=== PATIENT | male | born 1965 | race Caucasian/White ===

== ENCOUNTER 2017-04-23 15:26 | Emergency (ER) | payer SELFPAY ==
[2017-04-23 15:52] LABS: BASOPHILS % 0.5 (0.0-1.5); MEAN CORPUSCULAR HEMOGLOBIN 31.3 pg (28.0-34.0); MEAN CORPUSCULAR VOLUME 93.7 fl (80.0-100.0); MONOCYTES % 6.8 % (0.0-11.0); NEUTROPHILS # 6.2 # k/uL (1.4-7.7)
[2017-04-23] MEDS: 0.9 % SODIUM CHLORIDE 1,000 ML IV ONE (15:59)
[2017-04-23 16:06] LABS: eGFR (African) > 60; eGFR (Non-African) > 60
[2017-04-23 17:41] VITALS: BP 108/71
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
== END 2017-04-23 17:30 | disposition home or self-care (01) ==
LOC: ED 15:26
DX: R55 Syncope and collapse (principal)
CPT/HCPCS: 80053; 84484; 85025; 93005; J7030; 99283

== ENCOUNTER 2018-07-03 01:53 | Emergency (ER) | payer OTHER ==
[2018-07-03] MEDS ORDERED: IPRATROPIUM/ALBUTEROL SULFATE 3 ML AMPUL.NEB NEB ONE ×3 (02:01→02:30)
[2018-07-03] MEDS ORDERED: methylPREDNISolone SOD SUCC 125 MG/2 ML VIAL IM ONE (02:19)
[2018-07-03] MEDS ORDERED: AZITHROMYCIN 250 MG TABLET PO ONE (02:19)
[2018-07-03] MEDS ORDERED: MONTELUKAST SODIUM 10 MG TABLET PO ONE (02:22)
--- NOTE | 2018-07-03 02:26 | ED Physician Documentation ---
Dyspnea - HPI Stated Complaint: shortness of breath Chief Complaint: Asthma Additional Information: Patient presents to ED with a 2 hour history of increasingly shortness of breath and wheezing. Patient is from out of town visit the [facility]. He has a history of asthma and started having shortness of breath several hours ago while at the [facility]. He did not bring his portable nebulizer machine. He denies chest pain, fever, cough or sputum production. Onset: hours (1) Duration: continues in ED Initiating Event: out of meds Severity: moderate Exacerbated By: coughing Associated Symptoms: denies: chills, fever, productive cough - ROS CONST: no problems EYES/ENT: none GI/: none NEURO/PSYCH: denies: headache - PAST HX Lung Disease: asthma Cardiac Disease: none PE Risk Factors: none Surgeries/Procedures: none Other History: none Allergies/Adverse Reactions: Allergies Allergy/AdvReac Type Severity Reaction Status Date / Time No Known Allergies Allergy Verified 04/23/17 16:15 Home Medications: Ambulatory Orders Medication Instructions Recorded Albuterol Sulfate [Ventolin HFN] 1 appl IH PRN PRN 04/23/17 Azithromycin 500 mg PO DAILY #5 tablet 07/03/18 predniSONE [Deltasone] 10 mg PO DAILY #30 tablet 07/03/18 - SOCIAL HX Smoking History: cigarettes, greater than 1 pack/day Alcohol Use: none Drug Use: none - FAMILY HX Family History: none - VITAL SIGNS Vital Signs: Vital Signs Temp Pulse Resp BP Pulse Ox 108/71 04/23/17 17:38 - REVIEWED ASSESSMENTS Nursing Assessment Reviewed: Yes Vitals Reviewed: Yes Progress - Progress Progress: 0253 Patient states he is breathing better after second Duoneb. Improved air entry, less wheezing bilaterally, expiratory only. ED Results Lab/Radiology - Radiology Radiology Impressions: Report Submission Date: July 03, 2018 2:52:17 AM CDT Patient Study Name: SHUBHAM BOLANOS Date: July 03, 2018 2:27:31 AM CDT Modality Type: DX Gender: M Description: CHEST 2VIEW : 69 Institution: [facility] Physician: FIORELLA FERRARA Chest, 2 view History: Shortness of breath. Findings: The heart size is normal. The lungs are hyperinflated consistent with underlying emphysema. No acute infiltrate. There is no pleural effusion or pneumothorax identified. The osseous structures are normal. Impression: 1. Emphysematous change without acute infiltrate. Electronically signed on July 03, 2018 2:52:17 AM CDT by: Lopez Yanez - Orders Orders: ED Orders Category Date Time Status Azithromycin [Zithromax] Med 07/03/18 02:19 Once 500 mg PO NOW ONE Ipratropium/Albuterol Sulfate [Duoneb] Med 07/03/18 02:01 Discontinued 3 ml NEB .STK-MED ONE Ipratropium/Albuterol Sulfate [Duoneb] Med 07/03/18 02:19 Once 3 ml NEB NOW ONE Montelukast Sodium [Singulair] Med 07/03/18 03:00 Stop Req 10 mg PO HS Montelukast Sodium [Singulair] Med 07/03/18 02:22 Once 10 mg PO NOW ONE methylPREDNISolone SOD SUCC [SOLU-Medrol] Med 07/03/18 02:19 Once 125 mg IM NOW ONE Dyspnea Physical Exam - EXAM General Appearance: no acute distress, alert EENT: DEANNA Respiratory: prolonged expirations, accessory muscle use, decreased air movement, wheezes (inspiratory/expiratory wheezing bilaterally), other (tripod position on edge of bed) CVS: reg. rate & rhythm, no murmur Abdomen: non-tender, no distention. No: tenderness Skin: color nml, no rash Extremities: non-tender, normal range of motion, no evidence of injury Neuro/Psych: oriented x3, motor nml, mood/affect nml Discharge Clincal Impression: Acute exacerbation of COPD with asthma Prescriptions: Azithromycin 500 mg PO DAILY #5 tablet predniSONE [Deltasone] 10 mg PO DAILY #30 tablet Referrals: Primary Doctor,No [Primary Care Provider] - 2 Days Additional Instructions: 1. take antibiotics until gone 2. Start Prednsione on 07/04/18 3. Add daily antihistamine such as Claritin, Hailee, Zyrtec or Hailee 4. Use nebulizer treatments as previously prescribed 5. Follow up with PCP within 1 week 6. Return to ER for new or worsening symptoms Condition: Stable Disposition: 01 HOME, SELF-CARE Decision to Admit: NO Date of Decison to Admit: 07/03/18 Decision Time: 03:25
[2018-07-03] MEDS ORDERED: MONTELUKAST SODIUM 10 MG TABLET PO SCH (03:00)
[2018-07-03 03:27] VITALS: BP 136/80
--- NOTE | 2018-07-03 03:42 | Diagnostic Imaging Report ---
FIORELLA FERRARA [facility] [address] [facility].[address] [address] Report Submission Date: July 03, 2018 2:52:17 AM CDT Patient Study Name: SHUBHAM BOLANOS Date: July 03, 2018 2:27:31 AM CDT Modality Type: DX Gender: M Description: CHEST 2VIEW : 69 Institution: [facility] Physician: FIORELLA FERRARA Chest, 2 view History: Shortness of breath. Findings: The heart size is normal. The lungs are hyperinflated consistent with underlying emphysema. No acute infiltrate. There is no pleural effusion or pneumothorax identified. The osseous structures are normal. Impression: 1. Emphysematous change without acute infiltrate. Electronically signed on July 03, 2018 2:52:17 AM CDT by: Lopez SKINNER
== END 2018-07-03 03:35 | disposition home or self-care (01) ==
LOC: ED 01:53
DX: J44.1 Chronic obstructive pulmonary disease with (acute) exacerbation (principal); Z72.0 Tobacco use
CPT/HCPCS: 71046; 94640; 96372; 99283; 99284; J2930